=== PATIENT | female | born 1975 ===

== ENCOUNTER 2017-09-27 18:35 | Emergency (ER) | payer OTHER ==
[2017-09-27 19:22] VITALS: BP 141/72
--- NOTE | 2017-09-27 20:16 | UC ---
Skin Complaint HPI - HPI Summary HPI Summary: left wrist bug bite? began this morning--now has lymph streaking 1/3 up her upper arm, hand and wrist with swelling and tenderness - History of Current Complaint Chief Complaint: UCSkin Time Seen by Provider: 09/27/17 20:03 Stated Complaint: SKIN COMPLAINT Hx Obtained From: Patient Hx Last Menstrual Period: 09/12/17 ?: No Onset/Duration: Sudden Onset, Lasting Days - 1, Still Present, Worse Since - getting worse all day Onset Severity: Mild Current Severity: Moderate Pain Intensity: 5 Location: Diffuse - left forearm spreading in to left upper arm Character: Swelling, Redness Aggravating Factor(s): Nothing Alleviating Factor(s): Nothing Associated Signs & Symptoms: Positive: Negative, Tenderness, Red Streaks Related History: Insect Bite/Sting - Allergy/Home Medications Allergies/Adverse Reactions: Allergies Allergy/AdvReac Type Severity Reaction Status Date / Time No Known Allergies Allergy Verified 09/27/17 19:22 Review of Systems Constitutional: Negative Skin: Other - lesion (? bug bite) left forearm with lympgh streaking in to upper arm,,has tense swelling in hand and wrist Eyes: Negative ENT: Negative Respiratory: Negative Cardiovascular: Negative Gastrointestinal: Negative Genitourinary: Negative Motor: Negative Neurovascular: Negative Musculoskeletal: Negative Neurological: Negative Psychological: Negative Is Patient Immunocompromised?: No All Other Systems Reviewed And Are Negative: Yes PMH/Surg Hx/FS Hx/Imm Hx Previously Healthy: Yes - Surgical History Surgical History: None - Family History Known Family History: Positive: Hypertension - Social History Occupation: Employed Full-time Lives: With Family Alcohol Use: Occasionally Substance Use Type: None Smoking Status (MU): Never Smoked Tobacco Physical Exam Triage Information Reviewed: Yes Appearance: Well-Appearing, No Pain Distress, Well-Nourished Vital Signs: Initial Vital Signs Temp 98.5 F 09/27/17 19:18 Pulse 58 09/27/17 19:18 Resp 16 09/27/17 19:18 BP 141/72 09/27/17 19:18 Pulse Ox 100 09/27/17 19:18 Vital Signs Reviewed: Yes Eye Exam: Normal Eyes: Positive: Conjunctiva Clear ENT Exam: Normal ENT: Positive: Normal ENT inspection, Hearing grossly normal, Pharynx normal. Negative: Nasal congestion, Trismus, Muffled voice, Hoarse voice Dental Exam: Normal Neck exam: Normal Neck: Positive: Supple, Nontender, No Lymphadenopathy Respiratory Exam: Normal Respiratory: Positive: Chest non-tender, No respiratory distress, No accessory muscle use Cardiovascular Exam: Normal Cardiovascular: Positive: RRR, Pulses Normal, Brisk Capillary Refill Musculoskeletal Exam: Other Musculoskeletal: Positive: Strength Intact, ROM Intact, Edema @ - left hand, wrist and forearm, Other: - lymphstreaking 1/3 of upper arm Neurological Exam: Normal Neurological: Positive: Alert Psychological Exam: Normal Skin: Positive: Other - oozing ?bug bite left forearm Course/Dx - Course Course Of Treatment: plan to transfer to hospital with mother driving for further evaluation - Diagnoses Provider Diagnoses: Cellulitis with lymphstreaking left forearm - Physician Notification/Consults Discussed Patient Care With: Nikko Iyer Time Discussed With Above Provider: 20:30 Instructed by Provider To: Transfer Discharge - Discharge Plan Condition: Stable Disposition: HOME Patient Education Materials: Cellulitis (ED) Referrals: Miri Esquivel MD [Primary Care Provider] - Additional Instructions: You are being discharges from the urgent care to go directly to the emergency department at [facility] for a higher level of care
== END 2017-09-27 20:23 | disposition home or self-care (01) ==
LOC: UCCORT 18:35
DX: L03.114 Cellulitis of left upper limb (principal); I89.1 Lymphangitis
CPT/HCPCS: 99212; G0463